=== PATIENT | female | born 1990 | race Caucasian/White ===

== ENCOUNTER 2020-02-02 18:15 | Inpatient (IN) ==
[2020-02-02] MEDS ORDERED: OXYTOCIN 30 UNITS/500 ML BAG IV PRN (19:00)
[2020-02-02] MEDS: LACTATED RINGER'S 1,000 ML IV PRN ×2 (19:24→20:19)
[2020-02-02 19:31] LABS: Hematocrit (blood only) 35.3 % (37-47); Hemoglobin 11.5 g/dL (12.0-16.0); Mean Corpuscular Hemoglobin 27.8 pg (25-34); Mean Corpuscular Volume 85.3 fL (80-100); Mean Platelet Volume 10.7 fL (7.4-10.4); Platelet Count 192 K/uL (130-400); RDW Coefficient of Variation 13.6 % (11.5-14.5); RDW Standard Deviation 41.9 fL (36.4-46.3); Red Blood Count 4.14 M/uL (4.2-5.4); White Blood Count 12.93 K/uL (4.8-10.8)
[2020-02-02] MEDS ORDERED: NALOXONE HCL 0.4 MG/1 ML VIAL/CARP IV PRN (19:36)
[2020-02-02] MEDS ORDERED: ONDANSETRON INJ 2 MG/ML 2 ML VIAL IV PRN (19:36)
[2020-02-02] MEDS ORDERED: ePHEDrine sulfate 50 MG/ML AMP IV PRN (19:36)
[2020-02-02] MEDS ORDERED: DiphenhydrAMINE HCL 50 MG/ML VIAL IV PRN (19:36)
[2020-02-02] MEDS ORDERED: NALOXONE HCL 1 MG in SODIUM CHLORIDE 0.9% 1000ML 1,000 ML IV PRN (19:36)
[2020-02-02 19:40] LABS: Mean Corpuscular Hgb Conc 32.6 g/dL (32-36)
[2020-02-02] MEDS ORDERED: ePHEDrine sulfate 50 MG/ML AMP ONE (19:40)
[2020-02-02] MEDS ORDERED: BUPIVACAINE 0.25% 30 ML VIAL ONE (19:41)
[2020-02-02] MEDS ORDERED: fentaNYL citrate 100 MCG/2 ML VIAL ONE (19:41)
--- NOTE | 2020-02-02 19:41 | Anesthesiology Consultation ---
Date of Service February 02, 2020 Assessment & Plan (1) Encounter for pre-operative examination: Chart Review Chart Review: Patient NOT seen in Pre Admission Testing and Acceptable Risk for Labor Epidural Consults Requested none History Height/Weight Height: 5 ft 4 in Weight: 68.946 kg Allergies Allergy/AdvReac Type Severity Reaction Status Date / Time insect venom AdvReac Hives Verified 02/02/20 19:27 Medications Home Medications Medication Instructions Recorded Confirmed Last Taken 1 tab DAILY 02/02/20 02/02/20 02/02/20 06:00 Active Medications Generic Name Dose Route Start Last Admin Trade Name Freq PRN Reason Stop Dose Admin Lactated Ringer's 1,000 mls @ 125 mls/hr 02/02/20 19:00 02/02/20 19:24 Lr IV 02/04/20 18:59 999 mls/hr .Q8H PRN Administration L&D Protocol Protocol Past Medical History healthy Exercise / Class Metabolic Activity II 4-5 Yardwork/Stairs/Walk up hill Past Family History wisdom teeth Past Surgical History wisdom teeth removal Past Anesthesia History No Hx of Anesthesia Complications and No Family Hx of Anesthesia Complications History of PONV No Hx of PONV and No Hx of Motion Sickness Social History Smoking Status: Never smoker Do You Dip or Chew Tobacco: No Hx Alcohol Use: No Hx Substance Use: No substance use type: former substance user Physical Exam Vital Signs Last Vital Signs Temp 36.7 C 02/02/20 19:29 Pulse 74 02/02/20 20:04 Resp 18 02/02/20 19:29 BP 114/68 02/02/20 19:31 Pulse Ox 100 02/02/20 20:04 Testing Laboratory Results 02/02/20 19:22
[2020-02-02] MEDS: fentaNYL 2MCG/ML ROPIV 1.25MG/ML 100 ML BAG EPI PRN (19:59)
[2020-02-03] MEDS ORDERED: Nursing to Pharmacy Communication SCH (01:00)
[2020-02-03] MEDS: LACTATED RINGER'S 1,000 ML IV PRN ×2 (01:47→09:41)
--- NOTE | 2020-02-03 03:25 | Obstetrical Progress Note ---
Date of Service February 03, 2020 Assessment & Plan Admission and Anticipated Discharge Date Admission Date: February 02, 2020 Subjective Pt doing well FHR; CAT1 Ctx; 2-4mins VE /-2 Results & Data ([facility]) Vital Signs (Past 12 Hours) Vital Signs Temp Pulse Resp BP Pulse Ox 02/03/20 03:21 62 96 02/03/20 03:17 63 96/51 L 02/03/20 03:16 67 97 02/03/20 03:11 68 97 02/03/20 03:07 69 93/50 L 02/03/20 03:06 68 98 02/03/20 03:01 68 98 02/03/20 03:00 36.7 C 18 02/03/20 02:58 58 L 92/54 L 02/03/20 02:56 67 96 02/03/20 02:51 75 100 02/03/20 02:47 61 90/55 L 02/03/20 02:46 59 L 97 02/03/20 02:41 83 97 02/03/20 02:38 60 97/53 L 02/03/20 02:36 57 L 96 02/03/20 02:31 56 L 96 02/03/20 02:30 18 02/03/20 02:27 62 97/52 L 02/03/20 02:26 61 96 02/03/20 02:21 66 98 02/03/20 02:17 60 94/52 L 02/03/20 02:16 58 L 96 02/03/20 02:11 69 95 02/03/20 02:09 59 L 88/51 L 02/03/20 02:06 61 96 02/03/20 02:01 60 96 02/03/20 02:00 18 02/03/20 01:57 56 L 89/51 L 02/03/20 01:56 59 L 96 02/03/20 01:51 72 97 02/03/20 01:48 69 90/52 L 02/03/20 01:46 73 99 02/03/20 01:41 64 97 02/03/20 01:37 63 95/51 L 02/03/20 01:36 64 96 02/03/20 01:31 66 96 02/03/20 01:30 18 02/03/20 01:27 61 87/48 L 02/03/20 01:26 64 96 02/03/20 01:21 65 97 02/03/20 01:17 75 98/53 L 02/03/20 01:16 72 98 02/03/20 01:15 36.7 C 18 02/03/20 01:11 76 96 02/03/20 01:07 58 L 93/52 L 02/03/20 01:06 62 97 02/03/20 01:01 64 97 02/03/20 01:00 18 02/03/20 00:58 63 88/49 L 02/03/20 00:56 67 97 02/03/20 00:51 65 96 02/03/20 00:47 68 93/55 L 02/03/20 00:46 64 98 02/03/20 00:41 70 99 02/03/20 00:36 79 99 02/03/20 00:31 63 94 02/03/20 00:30 18 02/03/20 00:27 62 109/58 L 02/03/20 00:26 64 95 02/03/20 00:25 63 94 02/03/20 00:21 74 97 02/03/20 00:17 60 108/58 L 02/03/20 00:16 79 99 02/03/20 00:11 63 98 02/03/20 00:08 82 116/68 02/03/20 00:06 85 98 02/03/20 00:01 65 94 02/03/20 00:00 18 02/02/20 23:57 72 112/63 02/02/20 23:56 69 97 02/02/20 23:51 65 97 02/02/20 23:48 64 108/57 L 02/02/20 23:46 75 99 02/02/20 23:41 67 96 02/02/20 23:37 74 114/57 L 02/02/20 23:36 76 98 02/02/20 23:31 69 96 02/02/20 23:30 16 02/02/20 23:27 67 111/58 L 02/02/20 23:26 68 97 02/02/20 23:21 70 97 02/02/20 23:19 66 117/56 L 02/02/20 23:16 73 98 02/02/20 23:11 78 97 02/02/20 23:07 75 90/52 L 02/02/20 23:06 68 97 02/02/20 23:02 36.5 C 16 02/02/20 23:01 78 97 02/02/20 22:58 70 99/56 L 02/02/20 22:54 71 97 02/02/20 22:49 64 96 02/02/20 22:48 62 86/49 L 02/02/20 22:44 60 96 02/02/20 22:39 59 L 88/50 L 96 02/02/20 22:34 66 96 02/02/20 22:32 20 02/02/20 22:29 63 97 02/02/20 22:28 67 93/50 L 02/02/20 22:24 75 98 02/02/20 22:19 71 98 02/02/20 22:18 70 92/50 L 92 02/02/20 22:15 36.9 C 02/02/20 22:14 68 97 02/02/20 22:09 72 98 02/02/20 22:07 102 H 108/57 L 02/02/20 22:04 79 99 02/02/20 22:00 20 02/02/20 21:59 71 97 02/02/20 21:58 62 107/58 L 02/02/20 21:54 71 97 02/02/20 21:49 65 97 02/02/20 21:47 64 108/55 L 02/02/20 21:44 73 97 02/02/20 21:39 69 98 02/02/20 21:37 67 106/55 L 02/02/20 21:34 70 98 02/02/20 21:30 18 02/02/20 21:29 95 H 97 02/02/20 21:28 77 107/58 L 02/02/20 21:24 88 99 02/02/20 21:19 68 97 02/02/20 21:18 67 108/58 L 02/02/20 21:14 73 97 02/02/20 21:09 69 97 02/02/20 21:07 65 112/56 L 02/02/20 21:04 65 96 02/02/20 20:59 66 97 02/02/20 20:57 80 18 105/56 L 02/02/20 20:54 69 97 02/02/20 20:49 86 98 02/02/20 20:47 72 20 113/63 02/02/20 20:44 67 97 02/02/20 20:39 71 97 02/02/20 20:37 78 18 111/60 02/02/20 20:34 77 98 02/02/20 20:29 72 99 02/02/20 20:26 75 113/59 L 02/02/20 20:24 78 98 02/02/20 20:23 68 113/59 L 02/02/20 20:20 84 18 115/57 L 02/02/20 20:19 78 97 02/02/20 20:17 74 20 111/62 02/02/20 20:14 83 109/62 98 02/02/20 20:11 68 20 111/59 L 02/02/20 20:09 75 98 02/02/20 20:08 81 114/65 02/02/20 20:04 74 100 02/02/20 19:59 86 100 02/02/20 19:54 88 100 02/02/20 19:31 67 114/68 02/02/20 19:30 68 118/66 02/02/20 19:29 36.7 C 18 02/02/20 18:37 36.7 C 20 02/02/20 18:31 36.7 C 72 20 119/61
[2020-02-03] MEDS: fentaNYL 2MCG/ML ROPIV 1.25MG/ML 100 ML BAG EPI PRN ×2 (04:48→11:34)
[2020-02-03] MEDS ORDERED: OXYTOCIN 30 UNITS/500 ML BAG IV PRN ×2 (12:46→16:01)
[2020-02-03] MEDS ORDERED: OXYCODONE/ACETAMINOPHEN 5mg/325mg TAB PO PRN (16:01)
[2020-02-03] MEDS ORDERED: bisacodyL 10 MG SUPP PR PRN (16:01)
[2020-02-03] MEDS ORDERED: SUPERCREAM 0.870% 15 GM JAR EXT PRN (16:01)
[2020-02-03] MEDS ORDERED: ACETAMINOPHEN 325 MG TAB PO PRN (16:01)
[2020-02-03] MEDS ORDERED: DIPHTHERIA/TETANUS/PERTUSSIS 0.5 ML SYR/VIAL IM ONE (16:01)
[2020-02-03] MEDS ORDERED: BENZOCAINE 20% AER SPR 82.5 GM CAN EXT PRN (16:01)
[2020-02-03] MEDS ORDERED: HYDROCORTISONE ACETATE 25 MG SUPP PR PRN (16:01)
[2020-02-03] MEDS: IBUPROFEN 600 MG TAB PO PRN (16:38)
--- NOTE | 2020-02-03 18:20 | Anesthesia Procedure Note ---
Date of Service February 03, 2020 Anesthesia Post Epidural Note Vital Signs Vital Signs: Temp Pulse Resp BP Pulse Ox 37 C 59 L 16 102/57 L 97 02/03/20 16:07 02/03/20 18:17 02/03/20 17:37 02/03/20 18:17 02/03/20 16:11 Pain Intensity Bilateral Abdomen: Pain Intensity: 1 Notes Mental Status: alert / awake / arousable and participated in evaluation Patient Amnestic to Procedure: No Nausea / Vomiting: adequately controlled Pain: adequately controlled Airway Patency, RR, SpO2: stable & adequate BP & HR: stable & adequate Hydration State: stable & adequate Neuraxial Anesthesia: was administered and sensory block is resolving Anesthetic Complications: no major complications apparent and Pt Satisfied with anesthetic care Epidural: Removed without complications and With tip intact
[2020-02-03] MEDS: ACETAMINOPHEN W/CODEINE #3 1 TAB PO PRN (19:46)
[2020-02-03] MEDS: DOCUSATE SODIUM 100 MG CAP PO SCH (19:53)
--- NOTE | 2020-02-03 23:57 | Operative Report (OR) ---
DATE OF OPERATION: 02/03/2020 The patient is 1, para 1. Blood type is A positive, group B strep negative. Due date 01/29/2020. She was admitted in labor. Eventually, she received epidural for pain control and she had to be augmented with Pitocin, took her a long time to bring the head down. Finally, she brought the head down with the help of IV Pitocin augmentation, delivered live infant via direct occiput anterior position over an intact perineum. was suctioned through the mouth and the nose. Shoulders were delivered without difficulty. Cord was allowed to pulse for 1 minute, then clamped and cut by the father. Cord blood was taken. With IV Pitocin running, the placenta was removed intact. Inspection of the perineum revealed a laceration down to the rectal sphincter capsule and to part of the anterior portion of the capsule. I found the upper extent of the vaginal defect and approximated the vaginal mucosa with a running 2-0 Vicryl out to beyond the hymenal ring. I did a deep horizontal suture in the rectovaginal septum and then I approximate the perineal body, and then I did 2 separate sutures to approximate the rectal sphincter, the anterior portion of the rectal sphincter capsule. After that was done, I did a running subcuticular suture of the perineal skin edges to approximate the skin edges. Following this, hemostasis was good. Sponges were removed. Vag exam including rectovaginal examination revealed no hematoma formation or sponges in the rectum. The patient tolerated the procedure well. ESTIMATED BLOOD LOSS: 100 mL. I attest to the content of the Intraoperative Record and any orders documented therein. Any exception s are noted below.
[2020-02-04] MEDS: ACETAMINOPHEN W/CODEINE #3 1 TAB PO PRN (00:05)
[2020-02-04] MEDS: IBUPROFEN 600 MG TAB PO PRN ×4 (03:41→20:41)
[2020-02-04 06:25] LABS: Hematocrit (blood only) 28.7 % (37-47); Hemoglobin 9.7 g/dL (12.0-16.0); Mean Corpuscular Hemoglobin 28.6 pg (25-34); Mean Corpuscular Hgb Conc 33.8 g/dL (32-36); Mean Corpuscular Volume 84.7 fL (80-100); Mean Platelet Volume 10.3 fL (7.4-10.4); Platelet Count 170 K/uL (130-400); RDW Standard Deviation 42.8 fL (36.4-46.3); Red Blood Count 3.39 M/uL (4.2-5.4); White Blood Count 18.66 K/uL (4.8-10.8)
--- NOTE | 2020-02-04 07:55 | Obstetrical Progress Note ---
Date of Service February 04, 2020 Assessment & Plan Admission and Anticipated Discharge Date Admission Date: February 02, 2020 Physical Exam Physical Exam: abdomen soft and non tender no calf tenderness ambulating well vaginal bleeding scant hgb 9.7 Results & Data ([facility]) Vital Signs (Past 12 Hours) Vital Signs Temp Pulse Resp BP Pulse Ox 02/04/20 07:26 36.7 C 93 H 18 88/53 L 02/04/20 03:25 36.6 C 94 H 16 98/63 L 98 02/03/20 23:55 36.5 C 86 16 105/65 98
[2020-02-04] MEDS: FERROUS SULFATE 325 MG TAB PO SCH (08:02)
[2020-02-04] MEDS: PRENATAL VITAMIN 1 TAB PO SCH (08:02)
[2020-02-04] MEDS: DOCUSATE SODIUM 100 MG CAP PO SCH ×2 (08:02→20:41)
[2020-02-04 17:22] VITALS: O2SAT 98
[2020-02-04] MEDS ORDERED: bisacodyL 5 MG TABEC PO SCH (20:00)
[2020-02-05 06:55] LABS: Hematocrit (blood only) 31.2 % (37-47); Hemoglobin 10.1 g/dL (12.0-16.0)
[2020-02-05] MEDS: IBUPROFEN 600 MG TAB PO PRN (07:13)
[2020-02-05] MEDS: DOCUSATE SODIUM 100 MG CAP PO SCH (08:32)
[2020-02-05] MEDS: FERROUS SULFATE 325 MG TAB PO SCH (08:32)
[2020-02-05] MEDS: PRENATAL VITAMIN 1 TAB PO SCH (08:32)
[2020-02-05 08:43] VITALS: BP 104/64; PULSE 80; TEMP 97.9
--- NOTE | 2020-02-05 09:59 | Obstetrical Progress Note ---
Date of Service February 05, 2020 Assessment & Plan Admission and Anticipated Discharge Date Admission Date: February 02, 2020 Subjective PPD#1 stable tolerating diet passing gas out of bed plans for d/c this afternoon Physical Exam Constitutional: WD/WN, vitals as above comfortable fundus firm no edema neg Tammie's for d/c Results & Data ([facility]) Vital Signs (Past 12 Hours) Vital Signs Temp Pulse Resp BP Pulse Ox 02/05/20 08:17 36.6 C 80 18 104/64 98 02/04/20 23:15 36.3 C L 72 18 94/55 L Laboratory Results Laboratory Results - last 72 hr 02/02/20 02/04/20 02/05/20 19:22 06:04 06:40 WBC 12.93 H 18.66 H RBC 4.14 L 3.39 L Hgb 11.5 L 9.7 L 10.1 L Hct 35.3 L 28.7 L 31.2 L MCV 85.3 84.7 MCH 27.8 28.6 MCHC 32.6 33.8 RDW Std Deviation 41.9 42.8 RDW Coeff of Phani 13.6 14.0 Plt Count 192 170 MPV 10.7 H 10.3
== END 2020-02-05 15:25 | disposition home or self-care (01) | DRG 768 ==
LOC: OPB 18:15 → 4S1 18:15 → 4S2 02-03 19:20

== ENCOUNTER 2022-05-18 03:42 | Inpatient (IN) ==
[2022-05-18] MEDS ORDERED: LACTATED RINGER'S 1,000 ML IV PRN (04:41)
[2022-05-18] MEDS ORDERED: LIDOCAINE 1% LOCAL 20 ML VIAL INFIL PRN (04:41)
[2022-05-18] MEDS ORDERED: OXYTOCIN 30 UNITS/500 ML BAG IV PRN ×2 (04:41→10:39)
[2022-05-18 05:00] LABS: Hematocrit (blood only) 31.7 % (34.1-44.9); Hemoglobin 10.5 g/dl (12.0-16.0); Mean Corpuscular Hemoglobin 27.5 pg (25.0-34.0); Mean Corpuscular Hgb Conc 33.1 g/dL (32.0-36.0); Mean Platelet Volume 10.3 fL (9.4-12.3); Platelet Count 153 K/uL (130-400); RDW Coefficient of Variation 13.7 % (11.5-14.5); RDW Standard Deviation 41.1 fL (36.4-46.3); Red Blood Count 3.82 M/uL (3.93-5.22); White Blood Count 7.32 K/ul (4.8-10.8)
[2022-05-18] MEDS ORDERED: ePHEDrine sulfate 50 MG/ML AMP ONE (07:33)
[2022-05-18] MEDS ORDERED: SODIUM CHLORIDE 0.9% INJ 10 ML VIAL ONE (07:34)
[2022-05-18] MEDS ORDERED: BUPIVACAINE 0.25% 30 ML VIAL ONE (07:34)
[2022-05-18] MEDS ORDERED: fentaNYL citrate 100 MCG/2 ML VIAL ONE (07:34)
[2022-05-18] MEDS ORDERED: LIDOCAINE 2%/EPINEPHRINE 1:200,000 20 ML SDV ONE (07:34)
[2022-05-18] MEDS ORDERED: fentaNYL 2MCG/ML ROPIVACAINE 1.25MG/ML 100 ML BAG EPI ONE (07:35)
--- NOTE | 2022-05-18 07:41 | History & Physical Report ---
Date of Service May 18, 2022 Assessment & Plan (1) Spontaneous rupture of amniotic membranes: Plan: 31-year-old -0-0-1 at 38 weeks of gestation presenting with spontaneous rupture of membranes and uterine contractions, in active labor, desires epidural for pain Vital signs stable afebrile, heart rate reassuring, GBS negative, Plan to monitor, epidural, anticipate (2) Active labor at term: Admission and Anticipated Discharge Date Admission Date: May 18, 2022 History of Present Illness Chief Complaint: Leakage of fluid and contractions Primary Care Provider: Shanel Diamond Patient is a 31-year-old -0-0-1 at 38 weeks of gestation who woke up with leakage of fluid at 2:30 AM this morning. Contractions started soon after and has been getting more regular and painful. Fluid has been clear with no ble eding. And baby has been moving. Her has been 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, GBS negative. Allergies Allergy/AdvReac Type Severity Reaction Status Date / Time insect venom AdvReac Hives Verified 02/02/20 19:27 Home Medications Medication Instructions Recorded Confirmed Type 1 tab DAILY 02/02/20 02/02/20 History ibuprofen 600 mg tablet 600 mg PO Q4H PRN fever or pain 02/05/20 Rx #30 tabs Patient History Medical History No known health problems Social History Smoking Status: Never smoker Second Hand Exposure: No; Hx Alcohol Use: No Hx Substance Use: No Preferred Language: Bol[place]ian Communication Ability: Effective Injection Molding Process Technician Required: No Beliefs That Will Affect Care: None marital status: Current Living Situation: Family Other Information That Helps Us Care for You: No Feels Safe at Home: Yes Safety Concerns: Feels Safe At This Time Assistive Devices: Glasses 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 Review of Systems as per Subjective / HPI Physical Exam Constitutional: WD/WN, vitals as above well developed, well nourished and + acute distress (With contractions) Genitourinary: normal external appearance (Grossly ruptured, nitrazine positive) OB Exam Abdomen: + vertex Manual OB Exam: + cervical dilation 5 cm, + cervical effacement 80% and + station -1 OB Exam Monitor Tracing: + external uterine monitor used and + category I Bedside ultrasound, vertex. Results & Data ([facility]) Vital Signs (Past 12 Hours) Vital Signs Temp Pulse Resp BP 05/18/22 04:48 37.0 C 18 05/18/22 06:06 20 05/18/22 06:06 36.9 C 20 05/18/22 04:01 81 113/56 L
--- NOTE | 2022-05-18 08:13 | Anesthesiology Consultation ---
Date of Service May 18, 2022 Assessment & Plan Chart Review Chart Review: Patient NOT seen in Pre Admission Testing and Acceptable Risk for Labor Epidural Consults Requested none ASA ASA2 Proposed Anesthesia Anesthesia Type: Labor Epidural Risk / Benefits Reviewed With: PT / POA / Parent / Guardian, Accepts Plan and Informed Consent Obtained History Height/Weight Height: 5 ft 4 in Weight: 67.132 kg Allergies Allergy/AdvReac Type Severity Reaction Status Date / Time insect venom AdvReac Hives Verified 02/02/20 19:27 Medications Home Medications Medication Instructions Recorded Confirmed Last Taken 1 tab DAILY 02/02/20 02/02/20 02/02/20 06:00 ibuprofen 600 mg tablet 600 mg PO Q4H PRN fever or pain 02/05/20 Unknown #30 tabs Past Medical History Medical History No known health problems Exercise / Class Metabolic Activity II 4-5 Yardwork/Stairs/Walk up hill Past Anesthesia History No Hx of Anesthesia Complications and No Family Hx of Anesthesia Complications History of PONV No Hx of PONV and No Hx of Motion Sickness Social History Smoking Status: Never smoker Hx Alcohol Use: No Hx Substance Use: No substance use type: former substance user Physical Exam Vital Signs Last Vital Signs Temp 36.9 C 05/18/22 06:06 Pulse 74 05/18/22 08:11 Resp 20 05/18/22 06:06 BP 104/66 05/18/22 08:11 Pulse Ox 100 05/18/22 08:10 ENMT Mouth: no dentition abnormality Thyromental Distance: > or= 3.5 Finger Breadths Mallampati Class: II Neck normal visual inspection Respiratory normal respiratory effort Auscultation: lungs clear to auscultation bilaterally Cardiovascular Rate/Rhythm: regular rate and regular rhythm Psychiatric Orientation: alert Testing Laboratory Results 05/18/22 04:54
[2022-05-18] MEDS ORDERED: NALBUPHINE HCL INJ 10 MG/ML AMP IV PRN (09:03)
[2022-05-18] MEDS ORDERED: diphenhydrAMINE 50 MG/ML VIAL IV PRN (09:03)
[2022-05-18] MEDS ORDERED: fentaNYL 2MCG/ML ROPIVACAINE 1.25MG/ML 100 ML BAG EPI PRN (09:03)
[2022-05-18] MEDS ORDERED: NALOXONE HCL 0.4 MG/1 ML VIAL/CARP IV PRN (09:03)
[2022-05-18] MEDS ORDERED: ONDANSETRON INJ 2 MG/ML 2 ML VIAL IV PRN (09:03)
[2022-05-18] MEDS ORDERED: NALOXONE HCL 1 MG in SODIUM CHLORIDE 0.9% 1000ML 1,000 ML IV PRN (09:03)
[2022-05-18] MEDS ORDERED: ePHEDrine sulfate 50 MG/ML AMP IV PRN (09:03)
[2022-05-18] MEDS ORDERED: MINERAL OIL 30 ML UDC ONE (09:58)
[2022-05-18] MEDS ORDERED: HYDROCORTISONE ACETATE 25 MG SUPP PR PRN (10:39)
[2022-05-18] MEDS ORDERED: ACETAMINOPHEN 325 MG TAB PO PRN (10:39)
[2022-05-18] MEDS ORDERED: BENZOCAINE 20% AER SPR 82.5 GM CAN EXT PRN (10:39)
[2022-05-18] MEDS ORDERED: bisacodyL 10 MG SUPP PR PRN (10:39)
[2022-05-18] MEDS ORDERED: DIPHTHERIA/TETANUS/PERTUSSIS 0.5 ML SYR/VIAL IM ONE (10:39)
--- NOTE | 2022-05-18 10:42 | Delivery Summary ---
Vaginal Delivery Summary Date of Service May 18, 2022 Vaginal Delivery Summary Delivery Note live female YASH over intact perineum with delayed cord clamping and Apgars 8/9 weight pending. Cord blood obtained followed by delivery of intact placenta. Second degree tear repaired with 3/0 Vicryl suture. EBL 200 ml. Final sponge, needle and instrument count are correct. Mom and baby stable.
--- NOTE | 2022-05-18 11:35 | Anesthesia Procedure Note ---
Date of Service May 18, 2022 Anesthesia Post Epidural Note Vital Signs Vital Signs: Temp Pulse Resp BP Pulse Ox 36.9 C 75 20 98/58 L 96 05/18/22 06:06 05/18/22 11:33 05/18/22 06:06 05/18/22 11:33 05/18/22 10:26 Notes Mental Status: alert / awake / arousable and participated in evaluation Nausea / Vomiting: adequately controlled Pain: adequately controlled Airway Patency, RR, SpO2: stable & adequate BP & HR: stable & adequate Hydration State: stable & adequate Neuraxial Anesthesia: was administered and sensory block is resolving Anesthetic Complications: no major complications apparent and Pt Satisfied with anesthetic care Epidural: Removed without complications and With tip intact
[2022-05-18] MEDS: DOCUSATE SODIUM 100 MG CAP PO SCH (21:02)
[2022-05-18] MEDS: IBUPROFEN 600 MG TAB PO PRN (21:15)
[2022-05-19 07:41] LABS: Hematocrit (blood only) 31.5 % (34.1-44.9); Hemoglobin 10.4 g/dl (12.0-16.0); Mean Corpuscular Hemoglobin 28.1 pg (25.0-34.0); Mean Corpuscular Volume 85.1 fL (80.0-100.0); Mean Platelet Volume 10.6 fL (9.4-12.3); Platelet Count 158 K/uL (130-400); RDW Standard Deviation 43.2 fL (36.4-46.3); White Blood Count 8.99 K/ul (4.8-10.8)
[2022-05-19] MEDS ORDERED: PRENATAL VITAMIN 1 TAB PO SCH (08:00)
[2022-05-19] MEDS ORDERED: FERROUS SULFATE 325 MG TAB PO SCH (08:00)
[2022-05-19] MEDS: DOCUSATE SODIUM 100 MG CAP PO SCH (08:48)
[2022-05-19] MEDS: IBUPROFEN 600 MG TAB PO PRN (08:48)
[2022-05-19] MEDS ORDERED: NON-FORMULARY MEDICATION (Prenatal 1 TAB) PO SCH (09:00)
--- NOTE | 2022-05-19 10:01 | Obstetrical Progress Note ---
Date of Service May 19, 2022 Assessment & Plan Admission and Anticipated Discharge Date Admission Date: May 18, 2022 Subjective Patient is seen and examined. She feels well, no complaints. Desires d/c today Ambulating without dizziness Voiding without difficulty Tolerating regular diet with out N&V Bleeding is minimal No fever/ chills/ CP/ SOB/ N&V/ Leg pain Breast feeding without problems Lab Results 05/18/22 05/18/22 05/18/22 Range/Units 04:29 04:44 04:54 WBC 7.32 (4.8-10.8) K/ul RBC 3.82 L (3.93-5.22) M/uL Hgb 10.5 L (12.0-16.0) g/dl Hct 31.7 L (34.1-44.9) % MCV 83.0 (80.0-100.0) fL MCH 27.5 (25.0-34.0) pg MCHC 33.1 (32.0-36.0) g/dL RDW Std Deviation 41.1 (36.4-46.3) fL RDW Coeff of Phani 13.7 (11.5-14.5) % Plt Count 153 (130-400) K/uL MPV 10.3 (9.4-12.3) fL Amniotic Protein Cancelled SARS-CoV-2, RNA, NAAT NEGATIVE (NEGATIVE) 05/19/22 Range/Units 07:04 WBC 8.99 (4.8-10.8) K/ul RBC 3.70 L (3.93-5.22) M/uL Hgb 10.4 L (12.0-16.0) g/dl Hct 31.5 L (34.1-44.9) % MCV 85.1 (80.0-100.0) fL MCH 28.1 (25.0-34.0) pg MCHC 33.0 (32.0-36.0) g/dL RDW Std Deviation 43.2 (36.4-46.3) fL RDW Coeff of Phani 14.0 (11.5-14.5) % Plt Count 158 (130-400) K/uL MPV 10.6 (9.4-12.3) fL Amniotic Protein SARS-CoV-2, RNA, NAAT (NEGATIVE) Vital Signs Temp Pulse Resp BP Pulse Ox O2 Del Method 05/19/22 07:30 36.5 C 77 18 98/62 L 97 Room Air 05/19/22 05:15 36.7 C 66 16 106/65 98 Room Air 05/19/22 00:00 36.8 C 77 18 105/66 98 Room Air PE: General: Alert, orientedx3, NAD Abd: soft, NT, fundus firm, below Umbilicus Perineum intact, Lochia rubra minimal Ext; NT, no edema AP: 31 yo s/p , ppd# 1 VSS Afebrile doing well Continue routine care All questions were answered D/C home , f/u in office Discussed when to call Results & Data ([facility]) Vital Signs (Past 12 Hours) Vital Signs Temp Pulse Resp BP Pulse Ox O2 Del Method 05/19/22 07:30 36.5 C 77 18 98/62 L 97 Room Air 05/19/22 05:15 36.7 C 66 16 106/65 98 Room Air 05/19/22 00:00 36.8 C 77 18 105/66 98 Room Air
[2022-05-19] MEDS ORDERED: bisacodyL 5 MG TABEC PO SCH (20:00)
== END 2022-05-19 15:15 | disposition home or self-care (01) | DRG 807 ==
LOC: OPB 03:42 → 4S1 03:48 → 4E2 13:33

== ENCOUNTER 2025-03-07 20:59 | Inpatient (IN) ==
[2025-03-07] MEDS ORDERED: LACTATED RINGER'S 1,000 ML IV PRN (21:37)
[2025-03-07] MEDS ORDERED: CALCIUM CARBONATE 500 MG CHEWABLE TAB PO PRN (21:37)
--- NOTE | 2025-03-07 21:44 | History & Physical Report ---
Date of Service March 07, 2025 Assessment & Plan (1) Uterine contractions at greater than 20 weeks of gestation: Plan: 34-year-old -0-1-2 at 40 weeks and 3 days of gestation presenting today with contractions and in active labor, Vital signs stable afebrile, heart rate reassuring, GBS negative, Patient desires expectant management and ambulation, does not want to know her cervical exam, she does not plan to get epidural for now, Plan to admit, monitor, labs, monitor and ambulate, All questions were answered (2) Active labor at term: (3) Post-term , 40-42 weeks of gestation: History of Present Illness Primary Care Provider: Shanel Antoine Mcallistery Patient is a 34-year-old at 40 weeks and 3 days of gestation who has been feeling contractions since mid afternoon, they got more painful and regular after dinnertime. When she called me about an hour ago she stated that they were coming every 2 to 3 minutes and getting more painful. She denies leakage of fluid or vaginal bleeding. She reports good movements. Her has been 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 except she had superficial thrombophlebitis at 34 weeks when she was put on Lovenox and then was switched to heparin twice a day for prophylaxis. She is taking last dose in the morning but nothing this evening. She denies any other medical problems. GBS is negative. patient does not want to know her cervical exam, she was Foster-Atenol whether she is a labor and staying. She does not plan to get epidural for now but she will let us know if he changes her mind. Allergies Allergy/AdvReac Type Severity Reaction Status Date / Time insect venom Allergy Intermediate Hives Verified 04/19/24 07:26 Home Medications Medication Instructions Recorded Confirmed Type vits no.124-ferrous fum 1 tab PO QAM 04/17/24 01/19/25 History 27 mg iron-folic acid 800 mcg tablet ( Vitamin) Patient History Medical History Miscarriage History of migraine headaches Surgical History History of wisdom tooth extraction Family History Other No family history of adverse response to anesthesia Social History Smoking Status: Never smoker Second Hand Exposure: No; Do You Dip or Chew Tobacco: No; Hx Alcohol Use: No Hx Substance Use: No Preferred Language: Czech Communication Ability: Effective Cable Respooler Required: No Beliefs That Will Affect Care: None marital status: Current Living Situation: Spouse and Family Current Living Situation Comment: lives with and 2 kids Feels Safe at Home: Yes Assistive Devices: Contacts and Glasses OB History 2 full-term 's , 5 and 3 years ago, 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, 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 History no history of STDs, no history of chlamydia, gonorrhea, herpes Review of Systems as per Subjective / HPI Physical Exam Constitutional: WD/WN, vitals as above well developed, well nourished and + acute distress ( mild distress with contractions) Genitourinary: normal external appearance OB Exam Abdomen: + vertex Manual OB Exam: + cervical dilation 5 cm, + cervical effacement 70% and + station -2 OB Exam Monitor Tracing: + external uterine monitor used and + category I Results & Data Vital Signs (Past 12 Hours) Vital Signs Pulse BP 03/07/25 21:23 96 H 107/67 Code Status & VTE Plan VTE Prophylaxis Plan VTE Prophylaxis will be ordered: Yes
[2025-03-07 22:06] LABS: Hematocrit (blood only) 36.3 % (37.0-47.0); Hemoglobin 12.6 g/dl (12.0-16.0); Mean Corpuscular Hemoglobin 29.6 pg (25.0-34.0); Mean Corpuscular Volume 85.2 fL (80.0-100.0); Platelet Count 155 K/uL (130-400); RDW Standard Deviation 45.8 fL (36.4-46.3); Red Blood Count 4.26 M/uL (4.20-5.40); White Blood Count 9.94 K/ul (4.8-10.8)
[2025-03-08] MEDS: diphenhydrAMINE 50 MG/ML VIAL IV STA (00:21)
[2025-03-08] MEDS: OXYTOCIN 30 UNITS/NSS 30 UNITS/500 ML BAG IV PRN (00:50)
[2025-03-08] MEDS: LIDOCAINE 1% LOCAL 20 ML VIAL INFIL PRN (01:03)
[2025-03-08] MEDS ORDERED: ACETAMINOPHEN 325 MG TAB PO PRN (01:16)
[2025-03-08] MEDS ORDERED: HYDROCORTISONE ACETATE 25 MG SUPP PR PRN (01:16)
[2025-03-08] MEDS ORDERED: IBUPROFEN 600 MG TAB PO PRN (01:16)
[2025-03-08] MEDS ORDERED: OXYTOCIN 30 UNITS/NSS 30 UNITS/500 ML BAG IV PRN (01:16)
--- NOTE | 2025-03-08 01:20 | Delivery Summary ---
Vaginal Delivery Summary Date of Service March 08, 2025 Vaginal Delivery Summary Patient Has progressed to 8 cm with a large bulging bag without epidural. She requested artificial rupture of membranes done at 23:25 PM. She has done labored and was found to be fully dilated and desired to push. She pushed with few contractions and delivered the head and then shoulders with minimal traction. The baby was handed off to the mother. The cord was clampedx2 and cut at 1 minute. The vagina and perineum were checked and found to have a small 2nd degree perineal laceration. it was infiltrated with 1% lidocaine for local anesthesia. The vaginal mucosa was repaired with 2/0 vicryl and skin on subcuticular fashion. The placenta was delivered spontaneously as intact and complete. The uterus was explored and found to be empty. QBL was 272 ml. The fundus was firm. The baby was a viable female , Apgars 8/9, the weight is 3770 gr. The mother and the baby tolerated the procedure well. No complications happened and I was present during whole procedure.
[2025-03-08] MEDS: BENZOCAINE 20% SPRY 85 APPLN/85 GM CAN EXT PRN (01:44)
[2025-03-08] MEDS: DIPHTHER/TETAN/PERTUS Vaccine (Tdap, Adol/Adult) 0.5mL IM ONE (02:36)
[2025-03-08] MEDS: ACETAMINOPHEN 500 MG TAB PO PRN (03:30)
[2025-03-08 05:24] VITALS: O2SAT 97
[2025-03-08] MEDS: FERROUS SULFATE 325 MG TAB PO SCH (08:13)
[2025-03-08] MEDS: DOCUSATE SODIUM 100 MG CAP PO SCH (08:13)
[2025-03-08] MEDS: PRENATAL VITAMIN 1 TAB PO SCH (08:13)
[2025-03-09 00:55] VITALS: TEMP 97.9
[2025-03-09 07:41] LABS: Hematocrit (blood only) 32.4 % (37.0-47.0); Hemoglobin 11.0 g/dl (12.0-16.0); Mean Corpuscular Hemoglobin 29.8 pg (25.0-34.0); Mean Corpuscular Volume 87.8 fL (80.0-100.0); Platelet Count 151 K/uL (130-400); RDW Standard Deviation 48.7 fL (36.4-46.3); Red Blood Count 3.69 M/uL (4.20-5.40); White Blood Count 9.85 K/ul (4.8-10.8)
[2025-03-09 10:51] VITALS: BP 96/61; RESP 16
--- NOTE | 2025-03-09 10:57 | Obstetrical Progress Note ---
Date of Service March 09, 2025 Subjective Ambulation: ambulating normally Voiding: no voiding problems Passing Gas:: Yes Diet Tolerance:: regular diet Lochia:: Small Feeding Type:: breast feeding Current Pain Level(1-10): 0 doing well Physical Exam Constitutional WD/WN, vitals as above Respiratory normal respiratory effort, lungs clear to auscultation Gastrointestinal (Abdomen) Inspection/Auscultation: abdomen normal to inspection abdomen soft and non-tender Musculoskeletal Extremities: extremities normal to inspection neg Tammie's Skin no rashes, warm and dry Neurologic patellar DTR's 2+ bilat, sensation intact Psychiatric A+Ox3, euthymic affect Results & Data Vital Signs (Past 12 Hours) Vital Signs Temp Pulse Pulse Resp BP Pulse Ox O2 Del Method 03/09/25 09:20 36.6 C 93 H 16 96/61 L Room Air 03/08/25 23:40 36.6 C 77 18 98/64 L 97 Room Air Laboratory Results 03/07/25 03/09/25 21:50 07:06 WBC 9.94 9.85 RBC 4.26 3.69 L Hgb 12.6 11.0 L Hct 36.3 L 32.4 L MCV 85.2 87.8 MCH 29.6 29.8 MCHC 34.7 34.0 RDW Std Deviation 45.8 48.7 H RDW Coeff of Phani 14.8 H 15.2 H Plt Count 155 151 MPV 10.8 10.0 Treponema pallidum Ab Negative
[2025-03-09] MEDS: ENOXAPARIN INJ 40 MG/0.4 ML SYR SQ SCH (11:27)
[2025-03-09 12:53] VITALS: PULSE 77
== END 2025-03-09 14:00 | disposition home or self-care (01) | DRG 807 ==
LOC: OPB 20:59 → 4S1 21:03 → 4E2 03-08 04:09